=== PATIENT | male | born 1980 | race Caucasian/White ===

== ENCOUNTER 2022-03-09 19:03 | Emergency (ER) | payer SELFPAY ==
[~2022-03-09] VITALS: Ht 188 cm; Wt 106.6 kg
[2022-03-09 19:08] VITALS: BP 123/80
--- NOTE | 2022-03-09 19:20 | NUR ---
PT MOVED TO BED #4
--- NOTE | 2022-03-09 19:23 | NUR ---
PT EVALUATED BY DR. MCKEON.
--- NOTE | 2022-03-09 19:32 | NUR ---
Dr. Rodriguez assessing patient.
[2022-03-09 19:34] VITALS: BP 127/85
--- NOTE | 2022-03-09 19:35 | NUR ---
Chinyere curry in EDM - 03/09/22 at 1935 by [facility] PT CLEARED BY DR. MCKEON FOR DISCHARGE. ALL INSTRUCTIONS PROVIDED BY DR. MCKEON.
--- NOTE | 2022-03-09 19:35 | NUR ---
Patient discharged with v/s stable. Written and verbal after care instructions given and explained. Patient verbalized understanding. Ambulatory with steady gait. All questions addressed prior to discharge. Advised to follow up with PMD.
== END 2022-03-09 19:35 | disposition home or self-care (01) ==
LOC: MED 19:03
DX: Z00.00 Encounter for general adult medical examination without abnormal findings (principal); Z88.0 Allergy status to penicillin
CPT/HCPCS: 99281